=== PATIENT | male | born 1950 | race Caucasian/White ===

== ENCOUNTER 2019-08-18 11:31 | Day surgery (SDC) | payer OTHER ==
[2019-08-13 15:36] VITALS: BMI 31.2
[2019-08-18] MEDS: KETOROLAC TROMETHAMINE 0.5% EYE DROP 1 DROP DROPS OS SCH ×10 (10:00→12:55)
[2019-08-18] MEDS: OFLOXACIN 0.3% OPHTHALMIC SOLUTION 5 ML BOTTLE OS SCH ×10 (10:00→12:55)
[2019-08-18] MEDS: PHENYLEPHRINE 2.5% OPHTH SOLN 15 ML BOTTLE OS SCH ×10 (10:00→12:55)
[2019-08-18] MEDS: TROPICAMIDE 1% OPHTH SOLN 15 ML BOTTLE OS SCH ×10 (10:00→12:55)
[2019-08-18] MEDS: CYCLOPENTOLATE HCL 1% OPHTH SOLN 2 ML BOTTLE OS SCH ×10 (10:00→12:55)
[2019-08-18] MEDS ORDERED: CYCLOPENTOLATE HCL 1% OPHTH SOLN 2 ML BOTTLE ONE (12:06)
[2019-08-18] MEDS ORDERED: KETOROLAC TROMETHAMINE 0.5% EYE DROP 1 DROP DROPS ONE (12:07)
[2019-08-18] MEDS ORDERED: OFLOXACIN 0.3% OPHTHALMIC SOLUTION 5 ML BOTTLE ONE (12:07)
[2019-08-18] MEDS ORDERED: PHENYLEPHRINE 2.5% OPHTH SOLN 15 ML BOTTLE ONE (12:07)
[2019-08-18] MEDS ORDERED: TROPICAMIDE 1% OPHTH SOLN 15 ML BOTTLE ONE (12:07)
[2019-08-18] MEDS ORDERED: ACETAMINOPHEN 325 MG TABLET (FP) PO PRN (13:50)
[2019-08-18] MEDS ORDERED: MIDAZOLAM HCL 2 MG/2 ML SINGLE DOSE VIAL ONE (13:57)
[2019-08-18] MEDS ORDERED: BETAXOLOL HCL 0.25% OPHTHALMIC 10 ML DROPSBTL ONE (14:01)
[2019-08-18] MEDS ORDERED: BACITRACIN/POLYMYXIN OPH OINT 3.5 GM TUBE ONE (14:01)
[2019-08-18] MEDS ORDERED: NEO/POLYMYX B SULF/DEXAMETH OPHTHALMIC 5ML BOTTLE ONE (14:02)
[2019-08-18] MEDS ORDERED: POVIDONE-IODINE 5% OPHTHALMIC PREP 30 ML SOLUTION ONE (14:02)
--- NOTE | 2019-08-18 16:00 | OP ---
DATE OF OPERATION: 08/18/2019 PREOPERATIVE DIAGNOSIS: Cataract, left eye. POSTOPERATIVE DIAGNOSIS: Cataract, left eye. PROCEDURE: Cataract extraction via phacoemulsification with insertion of posterior chamber lens implant, left eye, multifocal lens, limbal relaxing incision. SURGEON: Charles Dumont MD GROUP MARKETING VP: Charles Dumont MD ANESTHESIA: Topical with sedation. ESTIMATED BLOOD LOSS: Less than 1 mL. COMPLICATIONS: None. SPECIMENS: None. DESCRIPTION OF PROCEDURE: The patient was identified in the holding area. After all risks, benefits, and alternatives were explained to the patient, informed consent was obtained. The left eye was marked with a marking pen. The patient then entered the operating room on an eye stretcher. After a formal time-out was performed, topical tetracaine eye drops were instilled onto the left eye. The left eye was then prepped and draped in the usual sterile fashion. Before the left eye was prepped and draped in the usual sterile fashion, the patient was asked to sit up and look straight, and the cardinal axes of astigmatism were marked using a Toric bubble marker and a Toric marking pen. After the patient was prepped and draped in the usual sterile fashion, an eyelid speculum was placed beneath the eyelid of the left eye. Then the axis of astigmatism was marked using a Toric dial and a Toric marking pen, which was noted to be 70 degrees. Then the 35-degree straddling araya, axial araya were created using a marking pen centered around each of the 70-degree meridians. Then an inferotemporal paracentesis incision was created using a 15-degree blade. Topical preservative-free epinephrine and preservative-free lidocaine were then injected into the anterior chamber. Viscoelastic was then injected into the anterior chamber. A 2.4-mm keratome blade was then used to make a superotemporal incision. A 360-degree continuous curvilinear capsulorrhexis was then created using bent cystotome and Utrata forceps. Hydrodissection was performed using balanced saline solution on a cannula. Phacoemulsification was introduced to disassemble and remove the nucleus in its entirety. Irrigation/aspiration was then used to remove any remaining cortical material from the eye. The capsular bag was reformed using viscoelastic. An Brown Model TFNT00 with a power of 20.5 diopter serial number [id number] was inspected, found to be defect free, and injected into the capsular bag. Irrigation/aspiration was then used to remove any remaining viscoelastic from the eye especially posterior to the optic. Then the intraocular lens was rotated and aligned so that the center of the optic matched the center of the Purkinje image based on the operating microscope lights. Once it was satisfactorily aligned, all wounds were hydrated with balanced saline solution and noted to be watertight. The lens was then confirmed again asking the patient to look at both microscope lights and the Purkinje images were observed and centered accordingly. Once the lens was perfectly centered in the capsular bag in the visual axis then limbal relaxing incisions were created using a kumar blade at 35 degrees axial to the 70-degree corneal meridian on both superior and inferior limbus. Once both limbal relaxing incisions were created, it was noted that the anterior chamber was deep. The lens was perfectly centered in the capsular bag. The eye had adequate pressure, and all wounds were watertight, and there was a red reflex present. Topical antibiotic eyedrops and ointment were then administered to the left eye. The eyelid speculum was removed from the left eye. The left eye was shielded. The patient tolerated the procedure well. Left the operating room in stable condition to follow up in the eye clinic tomorrow morning at 10 o'clock. CHARLES DUMONT M.D. [id number]
[2019-08-18 16:49] VITALS: TEMP 98.1
[2019-08-18 16:55] VITALS: BP 125/74; PULSE 65
== END 2019-08-18 16:00 | disposition home or self-care (01) ==
LOC: FASU 11:31
PROVIDERS: ATTEND Ophthalmology
PROC: 08RK3JZ Replacement of Left Lens with Synthetic Substitute, Percutaneous Approach (ICD-10-PCS; principal; 2019-08-18 14:39)
DX: H26.9 Unspecified cataract (principal)

== ENCOUNTER 2019-09-08 09:50 | Day surgery (SDC) | payer OTHER ==
[2019-09-01 16:46] VITALS: BMI 31.2
[2019-09-08] MEDS ORDERED: CYCLOPENTOLATE HCL 1% OPHTH SOLN 2 ML BOTTLE ONE (10:04)
[2019-09-08] MEDS ORDERED: OFLOXACIN 0.3% OPHTHALMIC SOLUTION 5 ML BOTTLE ONE (10:04)
[2019-09-08] MEDS ORDERED: TROPICAMIDE 1% OPHTH SOLN 15 ML BOTTLE ONE (10:04)
[2019-09-08] MEDS ORDERED: KETOROLAC TROMETHAMINE 0.5% EYE DROP 1 DROP DROPS ONE (10:04)
[2019-09-08] MEDS ORDERED: PHENYLEPHRINE 2.5% OPHTH SOLN 15 ML BOTTLE ONE (10:04)
[2019-09-08] MEDS: PHENYLEPHRINE 2.5% OPHTH SOLN 15 ML BOTTLE OD SCH ×5 (10:20→10:40)
[2019-09-08] MEDS: CYCLOPENTOLATE HCL 1% OPHTH SOLN 2 ML BOTTLE OD SCH ×5 (10:20→10:40)
[2019-09-08] MEDS: KETOROLAC TROMETHAMINE 0.5% EYE DROP 1 DROP DROPS OD SCH ×5 (10:20→10:40)
[2019-09-08] MEDS: TROPICAMIDE 1% OPHTH SOLN 15 ML BOTTLE OD SCH ×5 (10:20→10:40)
[2019-09-08] MEDS: OFLOXACIN 0.3% OPHTHALMIC SOLUTION 5 ML BOTTLE OD SCH ×5 (10:20→10:40)
[2019-09-08] MEDS ORDERED: BACITRACIN/POLYMYXIN OPH OINT 3.5 GM TUBE ONE (11:46)
[2019-09-08] MEDS ORDERED: NEO/POLYMYX B SULF/DEXAMETH OPHTHALMIC 5ML BOTTLE ONE (11:46)
[2019-09-08] MEDS ORDERED: POVIDONE-IODINE 5% OPHTHALMIC PREP 30 ML SOLUTION ONE (11:46)
[2019-09-08] MEDS ORDERED: BETAXOLOL HCL 0.25% OPHTHALMIC 10 ML DROPSBTL ONE (11:46)
[2019-09-08] MEDS ORDERED: EPI-SHUGARCAINE (EPINEPHRINE 0.025% & LIDOCAINE-PF 0.75%) 4ML ONE (11:46)
[2019-09-08] MEDS ORDERED: ACETAMINOPHEN 325 MG TABLET (FP) PO PRN (11:48)
[2019-09-08] MEDS ORDERED: MIDAZOLAM HCL 2 MG/2 ML SINGLE DOSE VIAL ONE (12:06)
[2019-09-08 15:55] VITALS: TEMP 98.5
[2019-09-08 15:57] VITALS: BP 131/79; PULSE 55
--- NOTE | 2019-09-08 16:54 | OP ---
DATE OF OPERATION: 09/08/2019 PREOPERATIVE DIAGNOSIS: Cataract, right eye. POSTOPERATIVE DIAGNOSIS: Cataract, right eye. PROCEDURE: Cataract extraction via phacoemulsification with insertion of posterior chamber lens implant, right eye, Toric multifocal lens. SURGEON: Charles Calles MD B2B ACCOUNT EXECUTIVE: Charles Calles MD ANESTHESIA: Topical with sedation. ESTIMATED BLOOD LOSS: Less than 1 mL. COMPLICATIONS: None. SPECIMENS: None. DESCRIPTION OF PROCEDURE: The patient was identified in the holding area. After all risks, benefits, and alternatives were explained to the patient, informed consent was obtained. The right eye was marked with a marking pen. The patient then entered the operating room on an eye stretcher. After a formal time-out was performed, topical tetracaine eye drops were instilled onto the right eye. The patient was then instructed to sit up and look straight ahead, and the cardinal axes of astigmatism were marked using a Toric bubble marker and a Toric marking pen. The patient was instructed to lay back down, and the right eft eye was prepped and draped in the usual sterile fashion, and an eyelid speculum was placed beneath the eyelid of the right eye. Then using a Toric dial and Toric marking pen, the axis of astigmatism was marked onto the cornea, which was noted to be 125 degrees. Then a superotemporal paracentesis incision was created using a 15-degree blade. Topical preservative-free epinephrine and preservative-free lidocaine were then injected into the anterior chamber. Viscoelastic was then injected into the anterior chamber. A 2.4-mm keratome blade was then used to make an infratemporal incision. Then a 360-degree continuous curvilinear capsulorrhexis was then created using bent cystotome and Utrata forceps. Hydrodissection was performed using balanced saline solution on a cannula. Phacoemulsification was introduced to disassemble and remove the nucleus in its entirety. Irrigation/aspiration was then used to remove any remaining cortical material from the eye. The capsular bag was reformed using viscoelastic. An Brown Model TFNT30 with a power of 21.0 diopter serial number [id number] was inspected and found to be defect free and injected into the capsular bag. Irrigation/aspiration was then used to remove any remaining viscoelastic from the eye including posterior to the optic. The intraocular lens was rotated so that the axis of astigmatism on the optic matched the axis of astigmatism on the cornea, which was noted to be 125 degrees. All wounds were hydrated with balanced saline solution and noted to be watertight. The Purkinje images were then inspected, and it was noted that the lens was perfectly centered in the capsular bag using the Purkinje light reflexes as references, which fell on the center of the center optic. Topical antibiotic eyedrops were then administered to the right eye. It was noted that the anterior chamber was deep. There was a red reflex present. The lens was perfectly centered in the capsular bag with the axis of astigmatism at 125 degrees and well centered. The anterior chamber was deep. The eye had adequate pressure. Topical antibiotic ointment were then administered to the right eye. The eyelid speculum was removed from the right eye. The right eye was shielded. The patient tolerated the procedure well. Left the operating room in stable condition to follow up in the eye clinic tomorrow morning at 10 o'clock. Petros [id number]
== END 2019-09-08 13:52 | disposition home or self-care (01) ==
LOC: FASU 09:50
PROVIDERS: ATTEND Ophthalmology
PROC: 08RJ3JZ Replacement of Right Lens with Synthetic Substitute, Percutaneous Approach (ICD-10-PCS; principal; 2019-09-08 12:31)
DX: H26.9 Unspecified cataract (principal)